=== PATIENT | female | born 1970 | race Caucasian/White ===

== ENCOUNTER 2020-02-13 10:10 | Outpatient (CLI) | payer OTHER, SELFPAY ==
--- NOTE | 2020-02-13 13:10 | WPDNEUROLOGY ---
Neurology EEG Report General Information Date of Study: 02/13/20
--- NOTE | 2020-02-13 13:14 | P.NEURO_ITS ---
Neurology EEG Report General Information Date of Study: 02/13/20 Test: EEG Diagnosis: memory loss Date of Recording: February 13, 2020 EEG Number: [id number] routine Clinical History: patient has a problem in remembering, H/O dementia in family EEG Description: basic resting occipital frequency consists of medium voltage well-organized 8 to 10 hertz persecond alpha admixed with low-voltage 15 to 18 hertz per second beta.During drowsiness low-voltage beta activity is seen diffusely admixedwith waxing and waning posterior alpha rhythm bilaterally symmetrical sleep activity seen during sleep hyperventilation not done. photic stimulation produced normal and symmetrical buildup.CREW ATTENDANT,NF,NL Impression: normal eeg
== END 2020-02-13 10:11 | disposition home or self-care (01) ==
PROVIDERS: Visit Provider Psychiatry & Neurology Neurology
DX: R41.3 Other amnesia (principal)
CPT/HCPCS: 95816